=== PATIENT | female | born 1990 | race Caucasian/White ===

== ENCOUNTER 2016-11-10 01:24 | Inpatient (IN) | payer OTHER ==
[~2016-11-10] VITALS: Ht 172.7 cm; Wt 84.8 kg
--- NOTE | ~2016-11-10 | OR ---
PATIENT'S NAME: NIDA PEREZ [facility] AGE: 26 Y [address] 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 Spontaneous rupture of membranes. 2. Spontaneous labor. 3. 38 and 4/7th-week intrauterine . PROCEDURE: 1. Precipitous vaginal delivery. 2. Repair of second-degree midline tear. PROCEDURE NOTE: Nida is a 26-year-old 2, para 1 female, who arrived after spontaneous rupture of membranes and spontaneous labor. She was 4 cm upon admission to the OB and delivery unit. She was set up for the epidural, received a shot but no medications, laid down, and baby delivered immediately thereafter. I was notified and was on my way, but nurse did the delivery. Baby is a male, delivered by the nurse in the bed. The cord was clamped and baby was moved to the warmer. Baby was a male, weighing 7 pounds 13 ounces with scores of 8 and 9 at 1 and 5 minutes. No resuscitative measures were required. Delivery was at 3:01 a.m. I arrived at about 3:10 a.m. Cord blood was obtained. Placenta was then delivered spontaneously and intact. There were no cervical or vaginal lacerations. She had a second-degree midline tear, which was anesthetized with Xylocaine without epinephrine and repaired using a running 3-0 Vicryl. Estimated blood loss 150 mL. Sponge and needle counts were correct. No complications. MD ADAMA GALDAMEZ/almal /[id number] d: 11/10/16 0412 t: 11/10/16 1131, OPERATIVE SUMMARY
[~2016-11-10 01:24] MED LIST: LEVOTHROID (S150 MCG PO; PRENATAL 1+1)(P1 TAB PO; PRILOSEC10 MG PO; SYNTHROID175 MCG PO
[2016-11-10 02:26] LABS: BASOPHIL % 0.3 %; EOSINOPHIL # 0.1 K/uL (0.0-0.5); EOSINOPHIL % 0.4 %; HEMATOCRIT 40.2 % (33.0-46.0); HEMOGLOBIN 13.1 g/dL (11.0-15.0); IMMATURE GRANULOCYTE # 0.1 K/uL (0.0-0.3); IMMATURE GRANULOCYTE % 0.4 %; LYMPHOCYTE # 2.3 K/uL (0.8-4.0); LYMPHOCYTE % 16.6 %; MCHC 32.6 gm/dL (32.0-36.5); MCV 89.1 fl (83.0-98.0); MONOCYTE # 1.1 K/uL (0.0-1.0); MONOCYTE % 7.5 %; MPV 10.7 fl (9.4-12.4); NEUTROPHIL # (ANC) 10.5 K/uL (1.8-7.8); NEUTROPHIL % 74.8 %; NRBC % 0 /100WBC (0-0.00); PLATELET COUNT 247 K/uL (150-450); RBC 4.51 M/uL (3.50-5.00); RDW-CV 13.8 % (11.9-14.6); WBC 14.1 K/uL (4.0-11.0)
--- NOTE | 2016-11-11 04:43 | NUR ---
Last VS: T:98.2 P:64 R: 16 BP: 104/62 Pain ratin Last pain med: PERCOCET/MOTRIN Medicated at: 2114 Effective: YES Breasts: SOFT, Nipples: ERECT Fundus: FIRM/1 DOWN Lochia: RUBRA Epis/Perineum:TENDER Voiding well: YES Significant event: V/S STABLE. AMBULATING IN ROOM. VOIDS WITHOUT DIFFICULTY. BACK AND ABD DISCOMFORT. FLOW MINIMAL. PLAN FOR DISMISSAL TODAY
[2016-11-11 06:10] LABS: BASOPHIL % 0.5 %; EOSINOPHIL # 0.2 K/uL (0.0-0.5); EOSINOPHIL % 2.2 %; HEMATOCRIT 36.7 % (33.0-46.0); HEMOGLOBIN 12.1 g/dL (11.0-15.0); IMMATURE GRANULOCYTE # 0.1 K/uL (0.0-0.3); IMMATURE GRANULOCYTE % 0.6 %; LYMPHOCYTE # 2.2 K/uL (0.8-4.0); LYMPHOCYTE % 26.9 %; MCH 29.8 pg (27.0-34.0); MCV 90.4 fl (83.0-98.0); MONOCYTE # 0.6 K/uL (0.0-1.0); MONOCYTE % 7.2 %; MPV 10.2 fl (9.4-12.4); NEUTROPHIL # (ANC) 5.2 K/uL (1.8-7.8); NEUTROPHIL % 62.6 %; NRBC % 0 /100WBC (0-0.00); RBC 4.06 M/uL (3.50-5.00); RDW-CV 14.3 % (11.9-14.6); WBC 8.3 K/uL (4.0-11.0)
[2016-11-11 06:11] LABS: PLATELET COUNT 157 K/uL (150-450)
[2016-11-11] MEDS ORDERED: MOTRIN800 MG PO (12:56)
[2016-11-11] MEDS ORDERED: PERCOCET 5-3251 EACH PO (12:57)
[2016-11-11] MEDS ORDERED: LANSINOH7 GM TOP (12:58)
[2016-11-11] MEDS ORDERED: TUCKS1 EACH TOP (12:58)
[2016-11-11] MEDS ORDERED: DERMOPLAST SPRA56 GM TOP (12:59)
[2016-11-11] MEDS ORDERED: SURFAK240 MG PO (13:01)
[2016-11-11] MEDS ORDERED: APNO TOP (13:01)
== END 2016-11-11 15:07 | disposition disaster alternative care site (69) | DRG 775 ==
LOC: GOBM 01:24 → GOBS 01:25 → GOBM 02:00 → GOBS 11-11 15:07 → GOBM 11-20 10:58
PROVIDERS: ADMIT Family Medicine
PROC: 0KQM0ZZ Repair Perineum Muscle, Open Approach (ICD-10-PCS; principal; 2016-11-10)
PROC: 10E0XZZ Delivery of Products of Conception, External Approach (ICD-10-PCS; principal; 2016-11-10)
DX: O62.3 Precipitate labor (principal); O70.1 Second degree perineal laceration during delivery; Z37.0 Single live birth; Z3A.39 39 weeks gestation of pregnancy
CPT/HCPCS: J2001; J2590; J3010; J7120